=== PATIENT | female | born 1960 | race Caucasian/White ===

== ENCOUNTER → 2024-10-11 12:55 | Outpatient (REF) | payer MEDICARE, OTHER, SELFPAY | LOC: WDC 12:55 | PROVIDERS: ATTENDING PHYSICIAN Internal Medicine | DX: Z78.0 Asymptomatic menopausal state (principal); Z12.31 Encounter for screening mammogram for malignant neoplasm of breast | CPT/HCPCS: 77063; 77067; 77080 ==